=== PATIENT | male | born 1945 | race Caucasian/White ===

== ENCOUNTER 2021-12-10 10:15 | Day surgery (SDC) | payer OTHER ==
[~2021-12-10] VITALS: Ht 185.4 cm; Wt 131.8 kg
[~2021-12-10 10:15] MED LIST: Amlodipine Besy10 MG PO; B-12500 MC2 PO; CHLO25B PO; LEVSOD75 PO; METF500 PO; VITAMIN D31000 UNI1 PO
[2021-12-10] MEDS ORDERED: Carvedilol12.5 MG PO (11:02)
[2021-12-10] MEDS ORDERED: BASAGLAR K100 UNIT/3 SC (11:03)
--- NOTE | 2021-12-10 15:19 | NUR ---
PATIENT RECEIVED BACK TO THE RECOVERY ROOM FROM THE LAB S/P PERIPHERAL PROCEDURE. SBAR RECEIVED FROM TERRI BARGER. PATIENT PLACED ON THE MONITOR AND CALL LIGHT IN REACH. LEFT GROIN AND ANGIOSEAL AND RIGHT FOOT PEDAL ACCESS. DOPPLER PULSE NOTED TO THE RIGHT FOOT. LEFT PT FELT. LEFT GROIN SOFT. DRESSING CDI. RIGHT FOOT ANNA/TEGADERM DRESSING MARKED WITH SMALL TAMERA SIZE BLOOD NOTED. NO PAIN NOTED FROM THE PATIENT. VVS. PATIENT DRINKING WATER. HOB UP TO 15 DEGREES.
[2021-12-10] MEDS ORDERED: CLOP75 PO (15:28)
--- NOTE | 2021-12-10 16:28 | NUR ---
PATIENT SAT UP IN THE BED TO FACILTATE EATING HIS MEAL. GROIN AND RIGHT FOOT DRESSING STABLE.
--- NOTE | 2021-12-10 17:30 | NUR ---
PT UP TO BATHROOM. GROIN SITE STABLE.
--- NOTE | 2021-12-10 17:45 | NUR ---
PT DRESSED PER SELF, GROIN SITE AND DP SITE BOTH STABLE. SALINE LOCK REMOVED WITH CATHETER INTACT. DISCHARGE INSTRUCTIONS REVIEWED WITH PT, VERBALIZES UNDERSTANDING OF INSTRUCTIONS. PT TO PRIVATE VEHICLE PER W/C WITH ONE STAFF.
== END 2021-12-10 23:02 | disposition home or self-care (01) ==
LOC: MHTC 10:15
DX: E11.51 Type 2 diabetes mellitus with diabetic peripheral angiopathy without gangrene (principal); I70.213 Atherosclerosis of native arteries of extremities with intermittent claudication, bilateral legs; R60.0 Localized edema; I13.10 Hypertensive heart and chronic kidney disease without heart failure, with stage 1 through stage 4 chronic kidney disease, or unspecified chronic kidney disease; E11.22 Type 2 diabetes mellitus with diabetic chronic kidney disease; N18.2 Chronic kidney disease, stage 2 (mild); E03.9 Hypothyroidism, unspecified; F17.210 Nicotine dependence, cigarettes, uncomplicated; Z79.4 Long term (current) use of insulin
CPT/HCPCS: 76937; 85347; 99152; 99153; A9270; C1714; C1725; C1760; C1769; C1874; C1876; C1887; C1894; C2623; J0360; J1644; J2250; J3010; J7030; J7050; Q9967

== ENCOUNTER 2022-05-12 09:10 | Day surgery (SDC) | payer OTHER ==
[~2022-05-12] VITALS: Ht 185.4 cm; Wt 130.2 kg
[~2022-05-12 09:10] MED LIST changes: +BASAGLAR K100 UNIT/3 SC; +CLOP75 PO; +Carvedilol12.5 MG PO
--- NOTE | 2022-05-12 09:56 | NUR ---
05/12/22 0956 Amirah Yanez CALL LIGHT WITHIN REACH. TETRACAINE AT 0950 IN RIGHT EYE. PLEDGETT AT 0953 IN RIGHT EYE
== END 2022-05-12 11:29 | disposition home or self-care (01) ==
LOC: ORSCSDS 09:10
PROVIDERS: Ophthalmology
PROC: 08RJ3JZ Replacement of Right Lens with Synthetic Substitute, Percutaneous Approach (ICD-10-PCS; principal; 2022-05-12 10:30)
DX: H25.11 Age-related nuclear cataract, right eye (principal); E11.22 Type 2 diabetes mellitus with diabetic chronic kidney disease; I12.9 Hypertensive chronic kidney disease with stage 1 through stage 4 chronic kidney disease, or unspecified chronic kidney disease; F17.210 Nicotine dependence, cigarettes, uncomplicated; N18.2 Chronic kidney disease, stage 2 (mild); Z79.4 Long term (current) use of insulin; J44.9 Chronic obstructive pulmonary disease, unspecified; Z79.899 Other long term (current) drug therapy; E66.9 Obesity, unspecified; Z68.37 Body mass index [BMI] 37.0-37.9, adult
CPT/HCPCS: 82947; J2001; J2250; J3010; J3301; J7040; V2632

== ENCOUNTER 2022-05-28 09:14 | Day surgery (SDC) | payer OTHER ==
[~2022-05-28] VITALS: Ht 185.4 cm; Wt 130.0 kg
--- NOTE | 2022-05-28 09:44 | NUR ---
05/28/22 0944 Amirah aYnez CALL LIGHT WITHIN REACH. TETRACAIN IN LEFT EYE AT 0941 PLEDGETT AT 0942
== END 2022-05-28 11:20 | disposition home or self-care (01) ==
LOC: ORSCSDS 09:14
PROVIDERS: Ophthalmology
PROC: 08RK3JZ Replacement of Left Lens with Synthetic Substitute, Percutaneous Approach (ICD-10-PCS; principal; 2022-05-28 10:30)
DX: H25.12 Age-related nuclear cataract, left eye (principal); Z96.1 Presence of intraocular lens; I12.9 Hypertensive chronic kidney disease with stage 1 through stage 4 chronic kidney disease, or unspecified chronic kidney disease; E11.22 Type 2 diabetes mellitus with diabetic chronic kidney disease; N18.9 Chronic kidney disease, unspecified; I73.9 Peripheral vascular disease, unspecified; F03.90 Unspecified dementia, unspecified severity, without behavioral disturbance, psychotic disturbance, mood disturbance, and anxiety; F17.210 Nicotine dependence, cigarettes, uncomplicated; E66.9 Obesity, unspecified; Z68.37 Body mass index [BMI] 37.0-37.9, adult; Z79.01 Long term (current) use of anticoagulants; Z79.899 Other long term (current) drug therapy
CPT/HCPCS: 82947; J2001; J2250; J3010; J3301; J7040; V2632

== ENCOUNTER 2024-10-31 15:05 | Inpatient (IN) | payer OTHER ==
[~2024-10-31] VITALS: Ht 185.4 cm; Wt 136.7 kg
[~2024-10-31 15:05] MED LIST changes: +AMIODARONE HCL400 M2 PO; +ATOR20 PO; +Amiodarone HCl200 MG PO; +COMPRESSOR NEB1 EACH MC; +FISH OIL PO; +IPRAT-ALBUT 0.5-3 ML INH; +METO50ER PO; +XARELTO20 MG PO
[2024-10-31 15:44] LABS: BASOPHILS ABSOLUTE AUTO 0.04 K/mm3 (0.00-0.23); BASOPHILS PERCENT AUTO 1 % (0-2); EOSINOPHILS ABSOLUTE AUTO 0.12 K/mm3 (0.00-0.68); EOSINOPHILS PERCENT AUTO 2 % (0-6); Hemoglobin 12.9 g/dL (13.5-17.5); IMMATURE GRAN ABSOLUTE AUTO 0.03 K/mm3 (0.00-0.10); IMMATURE GRAN PERCENT AUTO 1 % (0-1); LYMPHOCYTES ABSOLUTE AUTO 1.84 K/mm3 (0.84-5.20); LYMPHOCYTES PERCENT AUTO 31 % (21-46); MONOCYTES ABSOLUTE AUTO 0.62 K/mm3 (0.16-1.47); MONOCYTES PERCENT AUTO 10 % (4-13); Mean Corpuscular HGB 29.4 pg (26.0-34.0); Mean Corpuscular HGB Conc 30.7 g/dL (31.5-36.5); Mean Corpuscular Volume 96 fL (80-100); Mean Platelet Volume 9.9 fL (9.1-12.4); NEUTROPHILS ABSOLUTE AUTO 3.35 K/mm3 (1.96-9.15); NEUTROPHILS PERCENT AUTO 56 % (41-73); Platelet Count 184 K/mm3 (150-400); RDW Coefficient Variation 14.9 % (11.7-14.2); Red Blood Cell Count 4.39 M/mm3 (4.30-5.90)
[2024-10-31 15:59] LABS: Albumin, Blood 2.9 g/dL (3.4-5.0); Albumin/Globulin Ratio 0.7 (0.8-1.8); Bilirubin, Total 0.4 mg/dL (0.1-1.0); Bun/Creatinine Ratio 11.1 (12.0-20.0); Creatinine, Blood 2.16 mg/dL (0.60-1.20); Potassium, Blood 4.6 mmol/L (3.5-5.5); Total Protein, Blood 6.9 g/dL (6.4-8.2)
[2024-10-31] MEDS ORDERED: Furosemide 10 MG/ML 10ML Vial IV ONE (16:00)
[2024-10-31] MEDS ORDERED: Ondansetron HCl 2 MG / ML 2ML Vial IV PRN (20:20)
[2024-10-31] MEDS ORDERED: Ipratropium/Albuterol SulF 2.5-0.5MG/3 ML Amp INH SCH (20:20)
[2024-10-31 20:23] LABS: Bun/Creatinine Ratio 11.3 (12.0-20.0); Creatinine, Blood 2.12 mg/dL (0.60-1.20); Potassium, Blood 4.3 mmol/L (3.5-5.5)
[2024-10-31] MEDS ORDERED: Albuterol 2.5 MG/3 ML VIAL INH PRN (20:25)
[2024-10-31 20:46] LABS: Base Excess Venous 13.9 mmol/L; Bicarbonate Venous 34.7 mmol/L (24.0-30.0); pH Blood Venous 7.38 (7.34-7.37)
[2024-10-31] MEDS ORDERED: Insulin Glargine-Yfgn 100 Unit/mL 3 ML SYR SC SCH (21:00)
[2024-10-31] MEDS ORDERED: Insulin Human Lispro 100 Units/ML 3ML Syringe SC SCH (21:00)
[2024-10-31] MEDS ORDERED: Metoprolol Succinate 50 MG TABCR PO SCH (21:00)
[2024-10-31 21:33] VITALS: BP 150/119
[2024-10-31 21:59] VITALS: BP 166/111
[2024-10-31 22:53] LABS: Influenza A, PCR NEGATIVE (NEGATIVE); Influenza B, PCR NEGATIVE (NEGATIVE); Resp Syncytial Virus, PCR NEGATIVE (NEGATIVE); SARS-Cov-2 (COVID-19) PCR, MMC NEGATIVE (NEGATIVE)
[2024-10-31 23:00] VITALS: BP 151/112
[2024-10-31 23:30] VITALS: BP 119/84
[2024-11-01] VITALS (8 sets, daily range): BP systolic 111–155; BP diastolic 74–104
[2024-11-01 04:47] LABS: BASOPHILS ABSOLUTE AUTO 0.04 K/mm3 (0.00-0.23); BASOPHILS PERCENT AUTO 1 % (0-2); EOSINOPHILS ABSOLUTE AUTO 0.16 K/mm3 (0.00-0.68); EOSINOPHILS PERCENT AUTO 3 % (0-6); Hematocrit 42.5 % (37.0-53.0); IMMATURE GRAN ABSOLUTE AUTO 0.03 K/mm3 (0.00-0.10); IMMATURE GRAN PERCENT AUTO 1 % (0-1); LYMPHOCYTES ABSOLUTE AUTO 1.84 K/mm3 (0.84-5.20); LYMPHOCYTES PERCENT AUTO 29 % (21-46); MONOCYTES ABSOLUTE AUTO 0.69 K/mm3 (0.16-1.47); MONOCYTES PERCENT AUTO 11 % (4-13); Mean Corpuscular HGB 29.6 pg (26.0-34.0); Mean Corpuscular HGB Conc 30.6 g/dL (31.5-36.5); Mean Corpuscular Volume 97 fL (80-100); Mean Platelet Volume 9.8 fL (9.1-12.4); NEUTROPHILS ABSOLUTE AUTO 3.61 K/mm3 (1.96-9.15); NEUTROPHILS PERCENT AUTO 57 % (41-73); Platelet Count 194 K/mm3 (150-400); RDW Coefficient Variation 14.9 % (11.7-14.2); RDW Standard Deviation 53.3 fL (35.1-46.3); Red Blood Cell Count 4.39 M/mm3 (4.30-5.90); White Blood Cell Count 6.37 K/mm3 (4.00-11.30)
[2024-11-01 05:01] LABS: Albumin, Blood 2.9 g/dL (3.4-5.0); Albumin/Globulin Ratio 0.7 (0.8-1.8); Bilirubin, Total 0.4 mg/dL (0.1-1.0); Bun/Creatinine Ratio 11.6 (12.0-20.0); Calcium, Blood 8.9 mg/dL (8.5-10.1); Creatinine, Blood 2.25 mg/dL (0.60-1.20); Globulin, Blood 3.9 g/dL (2.2-4.0); Magnesium, Blood 2.1 mg/dL (1.6-2.4); Potassium, Blood 3.9 mmol/L (3.5-5.5); Total Protein, Blood 6.8 g/dL (6.4-8.2)
[2024-11-01] MEDS ORDERED: Levothyroxine Sodium 0.075 MG Tab PO SCH (06:00)
--- NOTE | 2024-11-01 06:19 | NUR ---
SHIFT SUMMARY NO ACUTE CHANGES DURING NOC. PT SLEPT INTERMITTENTLY. ROUSES EASILY TO VERBAL STIMULI. PT IS ABLE TO SHIFT SELF IN BED AND STAND AT BEDSIDE. HYPERTENSIVE AT TIMES. MONITOR SHOWS SR-ST, RATE 90s-100s WITH BBB AND OCCASIONAL PERIODS OF AFLUTTER. SATS STABLE WITH O2 3L NC. CPAP ON WHILE SLEEPING- 4L BLEED-IN THIS AM. RESPIRATIONS EVEN AND UNLABORED AT REST. DYSPNEA NOTED WITH EXERTION. TOLERATING DIET. PUREWICK IN PLACE- GOOD URINE OUTPUT AFTER DIURETICS. DENIES C/O PAIN OR NAUSEA. PLAN OF CARE ONGOING. WILL REPORT TO ONCOMING RN WHEN AVAILABLE.
[2024-11-01] MEDS ORDERED: Amiodarone HCl 200 MG Tab PO SCH (09:00)
--- NOTE | 2024-11-01 10:52 | NUR ---
INCREASED CPAP O2 DEMAND: PATIENT WAS SWITCHED OVER TO CPAP WHILE SLEEPIN 4L BLEED IN, HAD OT INCREASE TO 7-8L BLEED IN RT NOTIFIED, RT CHECKED AND ENDORSED TO MONITOR SPO2 LEVEL SATURATING 92-93 WHILE SLEEPING AT THIS BASELINE, PLAN OF CARE CONTINUES, PRIMARY RN AT BEDSIDE WELL.
[2024-11-01] MEDS ORDERED: Potassium Chloride 20 MEQ TabCR PO ONE (11:00)
[2024-11-01 14:09] LABS: Base Excess Venous 13.1 mmol/L; Bicarbonate Venous 34.4 mmol/L (24.0-30.0); PCO2 Venous 62.8 mmHg (38-42); pH Blood Venous 7.39 (7.34-7.37)
--- NOTE | 2024-11-01 16:08 | NUR ---
SUMMARY AOX4, ON 3L NC MOST OF THE DAY, SWITCHED TO BIPAP TO MAINTAIN O2, PATIENT WAS A BIT DROWSY. HAD PATIENT UP IN THE ROOM TO EAT LUNCH. SON VISITED, PATIENT PLACED BACK ON NC AND MAINTAINED <90%. LASIX GIVEN TODAY, PW IS IN PLACE WITH YELLOW URINE OUTPUT. DENIES SOB, CHEST PAIN. VSS, CALLS APPROPRIATELY.
[2024-11-01 16:32] LABS: Adenovirus Not Detected (NOT DETECT); Bordetella pertussis Not Detected (NOT DETECT); Chlamydophila pneumoniae Not Detected (NOT DETECT); Coronavirus 229E Not Detected (NOT DETECT); Coronavirus HKU1 Not Detected (NOT DETECT); Coronavirus NL63 Not Detected (NOT DETECT); Coronavirus OC43 Not Detected (NOT DETECT); Human Metapneumovirus Not Detected (NOT DETECT); Human Rhinovirus/Enterovirus Not Detected (NOT DETECT); Influenza A/2009-H1 Not Detected (NOT DETECT); Influenza A/H1 Not Detected (NOT DETECT); Influenza A/H3 Not Detected (NOT DETECT); Influenza B Not Detected (NOT DETECT); Mycoplasma pneumoniae Not Detected (NOT DETECT); Parainfluenza Virus 1 Not Detected (NOT DETECT); Parainfluenza Virus 2 Not Detected (NOT DETECT); Parainfluenza Virus 3 Not Detected (NOT DETECT); Parainfluenza Virus 4 Not Detected (NOT DETECT); Respiratory Syncytial Virus Not Detected (NOT DETECT); SARS-Cov-2 (COVID-19), BioFire Not Detected (NOT DETECT)
[2024-11-01] MEDS ORDERED: Furosemide 10 MG / ML 2ML Vial IV ONE (17:00)
[2024-11-01] MEDS ORDERED: Furosemide 10 MG / ML 2ML Vial IV SCH (17:00)
[2024-11-01] MEDS ORDERED: Rivaroxaban 2.5 MG TABLET PO SCH (18:00)
[2024-11-01] MEDS ORDERED: Furosemide 10 MG/ML 4ML Vial IV SCH (18:00)
[2024-11-01] MEDS ORDERED: Rivaroxaban 10 MG Tab PO SCH (18:00)
--- NOTE | 2024-11-01 21:38 | NUR ---
PATIENT DESATED TO 75% WHILE SLEEPING ON BIPAP. ATTEMPTED TO WAKE PATIENT AND TURNED OXYGEN BLEED UP AND PATIENT SPO2 CAME UP TO 80%. CALLED RT TO BEDSIDE WHO ADJUSTED BIPAP SETTINGS. SPO2 NOW >90%. PATIENT WAS NOT IN ANY VISUAL DISTRESS. WILL CONTINUE TO MONITOR.
[2024-11-02 03:38] VITALS: BP 127/88
[2024-11-02 05:31] LABS: BASOPHILS ABSOLUTE AUTO 0.05 K/mm3 (0.00-0.23); BASOPHILS PERCENT AUTO 1 % (0-2); EOSINOPHILS ABSOLUTE AUTO 0.12 K/mm3 (0.00-0.68); EOSINOPHILS PERCENT AUTO 2 % (0-6); Hematocrit 40.1 % (37.0-53.0); Hemoglobin 12.3 g/dL (13.5-17.5); IMMATURE GRAN ABSOLUTE AUTO 0.01 K/mm3 (0.00-0.10); IMMATURE GRAN PERCENT AUTO 0 % (0-1); LYMPHOCYTES ABSOLUTE AUTO 2.03 K/mm3 (0.84-5.20); LYMPHOCYTES PERCENT AUTO 35 % (21-46); MONOCYTES ABSOLUTE AUTO 0.59 K/mm3 (0.16-1.47); MONOCYTES PERCENT AUTO 10 % (4-13); Mean Corpuscular HGB 29.4 pg (26.0-34.0); Mean Corpuscular HGB Conc 30.7 g/dL (31.5-36.5); Mean Corpuscular Volume 96 fL (80-100); Mean Platelet Volume 10.1 fL (9.1-12.4); NEUTROPHILS ABSOLUTE AUTO 2.97 K/mm3 (1.96-9.15); NEUTROPHILS PERCENT AUTO 51 % (41-73); Platelet Count 170 K/mm3 (150-400); RDW Standard Deviation 53.1 fL (35.1-46.3); Red Blood Cell Count 4.19 M/mm3 (4.30-5.90); White Blood Cell Count 5.77 K/mm3 (4.00-11.30)
[2024-11-02 06:12] LABS: Albumin, Blood 2.6 g/dL (3.4-5.0); Albumin/Globulin Ratio 0.7 (0.8-1.8); Bilirubin, Total 0.5 mg/dL (0.1-1.0); Bun/Creatinine Ratio 11.5 (12.0-20.0); Calcium, Blood 8.6 mg/dL (8.5-10.1); Creatinine, Blood 2.34 mg/dL (0.60-1.20); Globulin, Blood 3.8 g/dL (2.2-4.0); Magnesium, Blood 2.2 mg/dL (1.6-2.4); Potassium, Blood 4.2 mmol/L (3.5-5.5); Total Protein, Blood 6.4 g/dL (6.4-8.2)
--- NOTE | 2024-11-02 06:17 | NUR ---
SHIFT SUMMARY PATIENT ALERT AND ORIENTED X4. HAD NO COMPMLAINTS OF PAIN OR SHORTNESS OF BREATH. ON 3-4 LITERS O2 VIA NC WHILE AWAKE AND WORE BIPAP FOR SLEEP. NO FURTHER EPISODES OF DESATURATION NOTED. VITAL SIGNS STABLE. WILL CONTINUE TO MONITOR. CALL LIGHT WITHIN REACH.
--- NOTE | 2024-11-02 08:41 | NUR ---
START OF SHIFT THIS NURSE ASSUMED CARE AT APPROXIMATELY 0700. PT RESTING COMFORTABLY IN BED, PT DENIES ANY PAIN AT THIS TIME. WILL CONTINUE WITH THE PLAN OF CARE.
[2024-11-02 09:00] VITALS: BP 137/87
[2024-11-02] MEDS ORDERED: Cyanocobalamin 500 MCG Tab PO SCH (09:00)
[2024-11-02] MEDS ORDERED: Furosemide 10 MG/ML 10ML Vial IV SCH (09:00)
[2024-11-02] MEDS ORDERED: Cholecalciferol 1000 Unit Tablet (=25MCG) PO SCH (09:00)
[2024-11-02] MEDS ORDERED: Furosemide 10 MG/ML 4ML Vial IV SCH (09:00)
[2024-11-02] MEDS ORDERED: Empagliflozin 10 MG TAB PO SCH (09:00)
[2024-11-02] MEDS ORDERED: Atorvastatin 10 MG Tab PO SCH (09:00)
[2024-11-02] MEDS ORDERED: Furosemide 10 MG / ML 2ML Vial IV SCH (10:00)
[2024-11-02 11:54] LABS: Magnesium, Blood 1.9 mg/dL (1.6-2.4); Potassium, Blood 3.7 mmol/L (3.5-5.5)
[2024-11-02 15:00] VITALS: BP 140/104
--- NOTE | 2024-11-02 18:11 | NUR ---
SHIFT SUMMARY PT HAS NO NEW EVENTS TODAY. PT ON 2L NC SAT AOVE 98%. PT HAS NO COMPLAINTS OR NEW CONCERNS AT THIS TIME.
[2024-11-02] MEDS ORDERED: Magnesium Sulf 2 GM/Water 50ML 50 ML IV ONE (19:20)
[2024-11-02] MEDS ORDERED: Potassium Chloride 20 MEQ TabCR PO ONE (20:00)
[2024-11-02 20:04] VITALS: BP 132/84
[2024-11-02 23:35] VITALS: BP 131/92
[2024-11-03 03:35] VITALS: BP 147/98
[2024-11-03 04:21] LABS: BASOPHILS ABSOLUTE AUTO 0.03 K/mm3 (0.00-0.23); BASOPHILS PERCENT AUTO 0 % (0-2); EOSINOPHILS ABSOLUTE AUTO 0.13 K/mm3 (0.00-0.68); EOSINOPHILS PERCENT AUTO 2 % (0-6); Hematocrit 40.2 % (37.0-53.0); Hemoglobin 12.5 g/dL (13.5-17.5); IMMATURE GRAN ABSOLUTE AUTO 0.01 K/mm3 (0.00-0.10); IMMATURE GRAN PERCENT AUTO 0 % (0-1); LYMPHOCYTES ABSOLUTE AUTO 2.45 K/mm3 (0.84-5.20); LYMPHOCYTES PERCENT AUTO 37 % (21-46); MONOCYTES ABSOLUTE AUTO 0.71 K/mm3 (0.16-1.47); MONOCYTES PERCENT AUTO 11 % (4-13); Mean Corpuscular HGB 29.3 pg (26.0-34.0); Mean Corpuscular HGB Conc 31.1 g/dL (31.5-36.5); Mean Corpuscular Volume 94 fL (80-100); NEUTROPHILS ABSOLUTE AUTO 3.38 K/mm3 (1.96-9.15); NEUTROPHILS PERCENT AUTO 51 % (41-73); Platelet Count 162 K/mm3 (150-400); RDW Coefficient Variation 14.8 % (11.7-14.2); RDW Standard Deviation 51.5 fL (35.1-46.3); Red Blood Cell Count 4.26 M/mm3 (4.30-5.90); White Blood Cell Count 6.71 K/mm3 (4.00-11.30)
[2024-11-03 04:47] LABS: Magnesium, Blood 2.4 mg/dL (1.6-2.4)
[2024-11-03 04:48] LABS: Albumin, Blood 2.7 g/dL (3.4-5.0); Albumin/Globulin Ratio 0.7 (0.8-1.8); Bilirubin, Total 0.5 mg/dL (0.1-1.0); Bun/Creatinine Ratio 12.6 (12.0-20.0); Calcium, Blood 8.6 mg/dL (8.5-10.1); Creatinine, Blood 2.46 mg/dL (0.60-1.20); Globulin, Blood 3.7 g/dL (2.2-4.0); Phosphorus, Blood 3.3 mg/dL (2.5-4.9); Potassium, Blood 3.5 mmol/L (3.5-5.5); Total Protein, Blood 6.4 g/dL (6.4-8.2)
--- NOTE | 2024-11-03 06:30 | NUR ---
SHIFT SUMMARY PATIENT ALERT AND ORIENTED X4. HAD NO COMPLAINTS OF PAIN OR SHORTNESS OF BREATH. CONTINUES ON 4 LITERS O2 WHILE AWAKE. WORE BIPAP FOR SLEEP. VITAL SIGNS STABLE. NO ACUTE ISSUES NOTED OVERNIGHT. WILL CONTINUE TO MONITOR. CALL LIGHT WITHIN REACH.
[2024-11-03 07:45] VITALS: BP 132/94
--- NOTE | 2024-11-03 08:36 | NUR ---
Pt is alert, oriented and pleasantly conversant. He ate all of his breakfast. Assisted out of bed to the recliner at his request. Encouraging OOB at least 2-3 times per day. Pt is still wearing purewick due to his difficulty in using the urinal and also still gettting high doses of IV lasix.
--- NOTE | 2024-11-03 08:38 | NUR ---
Oxygen presently is 2 l/min. spo2 89-90% while transferring from bed to recliner.
[2024-11-03] MEDS ORDERED: Polyethylene Glycol 3350 17 gm PO PRN (11:00)
[2024-11-03] MEDS ORDERED: Polyethylene Glycol 3350 17 gm PO ONE (11:00)
[2024-11-03 11:17] VITALS: BP 131/86
[2024-11-03] MEDS ORDERED: Furosemide 10 MG / ML 2ML Vial IV SCH (13:00)
[2024-11-03] MEDS ORDERED: Potassium Chloride 20 MEQ TabCR PO ONE ×2 (13:00→17:00)
--- NOTE | 2024-11-03 13:12 | NUR ---
Pt reports that the small red spots on his arms started after the doctor at the [facility] prescribed small red octagonal pill for his heart, just recently (within the last month). States that the red spots were also on his legs when he came in this admission. Pt states that the medication is xarelto. Pt has no allergies listed.
--- NOTE | 2024-11-03 14:06 | NUR ---
Call to [facility] to confirm pt's outpatient appointment, which he was uncertain about. Confirmed 11/14/24 3:45. Son and pt were updated.
[2024-11-03 15:36] LABS: Bun/Creatinine Ratio 13.2 (12.0-20.0); Calcium, Blood 8.8 mg/dL (8.5-10.1); Creatinine, Blood 2.58 mg/dL (0.60-1.20); Potassium, Blood 3.8 mmol/L (3.5-5.5)
[2024-11-03 16:07] VITALS: BP 141/94
--- NOTE | 2024-11-03 18:51 | NUR ---
Pt diuresing well today. Had BM in bathroom, up to chair and sitting on side of bed a few times today. [place] evacuating large amounts of clear yellow urine. He reports that he is feeling pretty good. Oxygen needs are 2 l/min by n.c. which is his current home dose.
[2024-11-03 20:21] VITALS: BP 163/107
[2024-11-03] MEDS ORDERED: Insulin Glargine-Yfgn 100 Unit/mL 3 ML SYR SC SCH (21:00)
[2024-11-04 03:16] VITALS: BP 143/99
[2024-11-04 04:14] LABS: BASOPHILS ABSOLUTE AUTO 0.06 K/mm3 (0.00-0.23); BASOPHILS PERCENT AUTO 1 % (0-2); EOSINOPHILS ABSOLUTE AUTO 0.11 K/mm3 (0.00-0.68); EOSINOPHILS PERCENT AUTO 2 % (0-6); Hematocrit 38.7 % (37.0-53.0); Hemoglobin 12.2 g/dL (13.5-17.5); IMMATURE GRAN ABSOLUTE AUTO 0.03 K/mm3 (0.00-0.10); IMMATURE GRAN PERCENT AUTO 0 % (0-1); LYMPHOCYTES ABSOLUTE AUTO 2.46 K/mm3 (0.84-5.20); LYMPHOCYTES PERCENT AUTO 36 % (21-46); MONOCYTES ABSOLUTE AUTO 0.71 K/mm3 (0.16-1.47); MONOCYTES PERCENT AUTO 10 % (4-13); Mean Corpuscular HGB 29.5 pg (26.0-34.0); Mean Corpuscular HGB Conc 31.5 g/dL (31.5-36.5); Mean Corpuscular Volume 94 fL (80-100); Mean Platelet Volume 9.9 fL (9.1-12.4); NEUTROPHILS ABSOLUTE AUTO 3.53 K/mm3 (1.96-9.15); NEUTROPHILS PERCENT AUTO 51 % (41-73); Platelet Count 171 K/mm3 (150-400); RDW Coefficient Variation 14.6 % (11.7-14.2); RDW Standard Deviation 50.3 fL (35.1-46.3); Red Blood Cell Count 4.14 M/mm3 (4.30-5.90)
[2024-11-04 04:43] LABS: Albumin, Blood 2.8 g/dL (3.4-5.0); Albumin/Globulin Ratio 0.7 (0.8-1.8); Bilirubin, Total 0.6 mg/dL (0.1-1.0); Bun/Creatinine Ratio 13.5 (12.0-20.0); Calcium, Blood 8.7 mg/dL (8.5-10.1); Creatinine, Blood 2.52 mg/dL (0.60-1.20); Globulin, Blood 3.8 g/dL (2.2-4.0); Magnesium, Blood 2.4 mg/dL (1.6-2.4); Potassium, Blood 3.7 mmol/L (3.5-5.5); Total Protein, Blood 6.6 g/dL (6.4-8.2)
--- NOTE | 2024-11-04 06:18 | NUR ---
SHIFT SUMMARY ASSUMED CARE OF PT AT APPROX 1900. PT A&O4, COOPERATIVE IN CARE AND ABLE TO EXPRESS NEEDS. PT DENIES SOB AND CP/PRESSURE. TITRATED PT BETWEEN 2-4L NC OVERNIGHT THEN PT AGREED TO BE PLACED ON CPAP WHILE SLEEPING. MALE PUREWICK IN PLACE OVERNIGHT WHILE SLEEPING D/T DIURESING. PT ABLE TO REPOSITIONSELF. NO ACUTE CARDIAC EVENTS OVERNIGHT REPORTED. BED IN LOWEST POSITION AND CALL LIGHT WITHIN REACH.
[2024-11-04 08:00] VITALS: BP 135/90
[2024-11-04] MEDS ORDERED: Potassium Chloride 20 MEQ TabCR PO ONE (09:00)
[2024-11-04 11:38] VITALS: BP 124/88
[2024-11-04 15:07] VITALS: BP 125/92
[2024-11-04 15:18] LABS: Bun/Creatinine Ratio 14.3 (12.0-20.0); Calcium, Blood 8.8 mg/dL (8.5-10.1); Creatinine, Blood 2.45 mg/dL (0.60-1.20); Potassium, Blood 4.2 mmol/L (3.5-5.5)
--- NOTE | 2024-11-04 17:50 | NUR ---
SHIFT SUMMARY PT A&Ox4, CALLS AND COMMUNICATES NEEDS APPOPRIATELY. BP STABLE, AFLUTTER 110's, DENIES CP/PRESSURE. SpO2> 92% 2L VIA NC, DESAT TO MID 80's WHEN ON RA, DENIES SOB. SBA FOR AMBULATION. MALE PUREWICK IN PLACE FOR ACCURATE I&Os WITH DIURETICS. NO C/O PAIN. NO OTHER EVENTS, WILL REPORT TO ONCOMING RN.
[2024-11-04 20:42] VITALS: BP 147/95
[2024-11-05 02:55] VITALS: BP 124/97
[2024-11-05 04:32] LABS: BASOPHILS ABSOLUTE AUTO 0.03 K/mm3 (0.00-0.23); BASOPHILS PERCENT AUTO 0 % (0-2); EOSINOPHILS ABSOLUTE AUTO 0.09 K/mm3 (0.00-0.68); EOSINOPHILS PERCENT AUTO 1 % (0-6); Hematocrit 40.6 % (37.0-53.0); Hemoglobin 12.9 g/dL (13.5-17.5); IMMATURE GRAN ABSOLUTE AUTO 0.02 K/mm3 (0.00-0.10); IMMATURE GRAN PERCENT AUTO 0 % (0-1); LYMPHOCYTES ABSOLUTE AUTO 2.13 K/mm3 (0.84-5.20); LYMPHOCYTES PERCENT AUTO 32 % (21-46); MONOCYTES ABSOLUTE AUTO 0.75 K/mm3 (0.16-1.47); MONOCYTES PERCENT AUTO 11 % (4-13); Mean Corpuscular HGB 29.9 pg (26.0-34.0); Mean Corpuscular HGB Conc 31.8 g/dL (31.5-36.5); Mean Corpuscular Volume 94 fL (80-100); NEUTROPHILS ABSOLUTE AUTO 3.68 K/mm3 (1.96-9.15); NEUTROPHILS PERCENT AUTO 55 % (41-73); Platelet Count 180 K/mm3 (150-400); RDW Coefficient Variation 14.6 % (11.7-14.2); RDW Standard Deviation 51.2 fL (35.1-46.3); Red Blood Cell Count 4.32 M/mm3 (4.30-5.90)
[2024-11-05 05:07] LABS: Albumin, Blood 2.8 g/dL (3.4-5.0); Albumin/Globulin Ratio 0.7 (0.8-1.8); Bilirubin, Total 0.6 mg/dL (0.1-1.0); Bun/Creatinine Ratio 13.6 (12.0-20.0); Calcium, Blood 8.9 mg/dL (8.5-10.1); Creatinine, Blood 2.65 mg/dL (0.60-1.20); Globulin, Blood 3.8 g/dL (2.2-4.0); Magnesium, Blood 2.4 mg/dL (1.6-2.4); Potassium, Blood 3.6 mmol/L (3.5-5.5); Total Protein, Blood 6.6 g/dL (6.4-8.2)
--- NOTE | 2024-11-05 05:31 | NUR ---
SHIFT SUMMARY ASSUMED CARE OF PT AT APPROX 1900. PT A&O4, COOPERATIVE IN CARE AND ABLE TO EXPRESS NEEDS. PT DENIES CP/PRESSURE AND SOB. VSS AND PT TOLERATED CPAP MOST OF THE NIGHT. PT DID HAVE EPISODES OF APNEA WHICH WOULD DROP HIS O2 SATURATION TO 79%. WHILE AWAKE PT WAS ON 2LNC AND WOULD AMBULATE TO RR WITH FWW. NO REPORTS OF DYSPNEA ON EXERTION. VSS. NO ACUTE CARDIAC EVENTS REPORTED. BED IN LOWEST POSITION AND CALL LIGHT WITHIN REACH.
[2024-11-05 07:44] VITALS: BP 126/92
[2024-11-05] MEDS ORDERED: Potassium Chloride 20 MEQ TabCR PO ONE (08:00)
[2024-11-05] MEDS ORDERED: Ipratropium/Albuterol SulF 2.5-0.5MG/3 ML Amp INH PRN (08:35)
[2024-11-05] MEDS ORDERED: Spironolactone 12.5 MG TAB PO SCH (09:00)
[2024-11-05] MEDS ORDERED: Furosemide 10 MG / ML 2ML Vial IV SCH (13:00)
[2024-11-05 14:38] LABS: Bun/Creatinine Ratio 13.9 (12.0-20.0); Calcium, Blood 8.6 mg/dL (8.5-10.1); Creatinine, Blood 2.66 mg/dL (0.60-1.20); Potassium, Blood 4.5 mmol/L (3.5-5.5)
[2024-11-05 15:19] VITALS: BP 135/99
--- NOTE | 2024-11-05 17:55 | NUR ---
SHIFT SUMMARY PT A&Ox4, CALLS AND COMMUNICATES NEEDS APPOPRIATELY. BP STABLE, AFLUTTER 100's, DENIES CP/PRESSURE. SpO2> 92% 2L VIA NC, DESAT TO MID 80's WHEN ON RA, DENIES SOB. SBA FOR AMBULATION. MALE PUREWICK IN PLACE FOR ACCURATE I&Os WITH DIURETICS. NO C/O PAIN. NO OTHER EVENTS, WILL REPORT TO ONCOMING RN.
[2024-11-05 20:27] VITALS: BP 124/78
[2024-11-05 21:12] LABS: Bun/Creatinine Ratio 14.4 (12.0-20.0); Creatinine, Blood 2.78 mg/dL (0.60-1.20); Potassium, Blood 3.8 mmol/L (3.5-5.5)
[2024-11-05 23:45] VITALS: BP 136/85
[2024-11-06 04:13] VITALS: BP 126/87
[2024-11-06 04:17] LABS: BASOPHILS ABSOLUTE AUTO 0.06 K/mm3 (0.00-0.23); BASOPHILS PERCENT AUTO 1 % (0-2); EOSINOPHILS ABSOLUTE AUTO 0.15 K/mm3 (0.00-0.68); EOSINOPHILS PERCENT AUTO 2 % (0-6); Hematocrit 42.5 % (37.0-53.0); Hemoglobin 13.6 g/dL (13.5-17.5); IMMATURE GRAN ABSOLUTE AUTO 0.03 K/mm3 (0.00-0.10); IMMATURE GRAN PERCENT AUTO 0 % (0-1); LYMPHOCYTES ABSOLUTE AUTO 2.86 K/mm3 (0.84-5.20); LYMPHOCYTES PERCENT AUTO 38 % (21-46); MONOCYTES ABSOLUTE AUTO 0.79 K/mm3 (0.16-1.47); MONOCYTES PERCENT AUTO 10 % (4-13); Mean Corpuscular HGB 29.8 pg (26.0-34.0); Mean Corpuscular Volume 93 fL (80-100); Mean Platelet Volume 10.3 fL (9.1-12.4); NEUTROPHILS ABSOLUTE AUTO 3.68 K/mm3 (1.96-9.15); NEUTROPHILS PERCENT AUTO 49 % (41-73); Platelet Count 207 K/mm3 (150-400); RDW Coefficient Variation 14.4 % (11.7-14.2); RDW Standard Deviation 48.7 fL (35.1-46.3); Red Blood Cell Count 4.57 M/mm3 (4.30-5.90); White Blood Cell Count 7.57 K/mm3 (4.00-11.30)
[2024-11-06 04:45] LABS: Magnesium, Blood 2.3 mg/dL (1.6-2.4)
[2024-11-06 04:46] LABS: Albumin, Blood 3.1 g/dL (3.4-5.0); Albumin/Globulin Ratio 0.7 (0.8-1.8); Bilirubin, Total 0.6 mg/dL (0.1-1.0); Calcium, Blood 8.7 mg/dL (8.5-10.1); Creatinine, Blood 2.66 mg/dL (0.60-1.20); Globulin, Blood 4.3 g/dL (2.2-4.0); Potassium, Blood 3.4 mmol/L (3.5-5.5); Total Protein, Blood 7.4 g/dL (6.4-8.2)
--- NOTE | 2024-11-06 06:44 | NUR ---
SHIFT SUMMARY: PT IS A&OX4, PLEASANT AND APPRECIATIVE OF CARE. PT IS VERY [place]. VSS ON 2L NC, CPAP ON WHILE ASLEEP. PT BECOMES APNEIC AND DESATS INTO THE 70'S WHILE CPAP IS ON. HR AFIB/AFLUTTER @ 110-120'S. DENIES PAIN. TOLERATING A CONS CARB DIET, GOOD APPETITE. SBA WITH FWW TO BR. WICKING SYSTEM DRAINING LARGE AMOUNTS OF CLEAR, LIGHT YELLOW URINE. X1 LARGE, NON FORMED BM THIS SHIFT. BED IN LOWEST POSITION, CALL LIGHT WITHIN REACH.
[2024-11-06 07:50] VITALS: BP 105/70
[2024-11-06] MEDS ORDERED: Potassium Chloride 20 MEQ TabCR PO ONE ×2 (08:00→17:00)
[2024-11-06 11:49] VITALS: BP 130/80
[2024-11-06 12:55] LABS: Bun/Creatinine Ratio 14.6 (12.0-20.0); Calcium, Blood 8.7 mg/dL (8.5-10.1); Creatinine, Blood 2.68 mg/dL (0.60-1.20); Potassium, Blood 3.8 mmol/L (3.5-5.5)
[2024-11-06 16:25] VITALS: BP 126/74
--- NOTE | 2024-11-06 17:42 | NUR ---
SHIFT SUMMARY: PT HAS BEEN A&Ox4, IS [place] BUT ANSWERS QUESTIONS APPROPRIATELY AND IS COOPERATIVE W/CARE. PT DENIES SOB, O2 SATS MAINTAINED >92% ON 2 L/MIN NC WHILE AWAKE, CPAP ON SB AT BEDSIDE. PT DENIES CP, AFLUTTER ON MONITOR W/RATE 90s-110s. PT HAS BEEN SBA TO/FROM BED, SPENDS PART OF THE DAY IN THE RECLINER, USES FWW IF AMBULATING TO BATHROOM. MALE PUREWICK CONTINUES IN PLACE, DRAINING YELLOW COLORED URINE TO LOW CONTINUOUS SUCTION. DIURETIC SCHEDULE MAINTAINED PER ORDERS. PT CURRENTLY RESTING IN RECLINER W/CALL LIGHT IN REACH.
[2024-11-06 20:30] VITALS: BP 123/71
--- NOTE | 2024-11-06 21:47 | NUR ---
ATTEMPTED TO CALL FOR REPORT AND AWAITING RETURN CALL.
--- NOTE | 2024-11-06 22:44 | NUR ---
ASSUMPTION OF CARE/TRANSFER: PT IS A&OX4, PLEASANT AND APPRECIATIVE OF CARE. PT IS VERY [place]. VSS ON 2L NC. HR AFLUTTER @ 110-120'S. DENIES PAIN. TOLERATING A CONS CARB DIET, GOOD APPETITE. SBA WITH FWW TO BR. WICKING SYSTEM DRAINING LARGE AMOUNTS OF CLEAR, LIGHT YELLOW URINE. BED IN LOWEST POSITION, CALL LIGHT WITHIN REACH. CALLED REPORT TO CIARA Ricks RN. TRANSFERRED PT AND ALL BELONGINGS IN HAND TO ROOM 308 AT 2220.
[2024-11-07 00:59] VITALS: BP 129/90
--- NOTE | 2024-11-07 04:45 | NUR ---
T/F AND SUMMARY: REPORT RECEIVED FROM VICTORIA AND PT T/F TO ROOM 308 AT 2210. PT WAS ORIENTED TO NEW ROOM AND CALL SYSTEM. HE'S A/OX4 AND PLEASANT AND COOPERATIVE W/CARE. PT IS [place] BUT ABLE TO SPECIFY NEEDS. HE REMAIN ON 2L O2 VIA NC W/SPO2 WNL AND TOLERATES CPAP AT HS W/3L O2 BLEED IN. PT ON TELE IN A.FLUTTER AT 100'S BPM. HE'S SBA W/FWW TO BR AND PUREWIC WAS DC'D PER REQUEST W/URINAL PROVIDED AT EOB. BLE EDEMA PERSISTS. NO ACUTE CHANGES, VSS/AFEBRILE. WCTM AND REPORT TO DAY RN.
[2024-11-07 04:49] VITALS: BP 116/77
[2024-11-07 07:38] VITALS: BP 121/74
[2024-11-07 07:59] LABS: BASOPHILS ABSOLUTE AUTO 0.04 K/mm3 (0.00-0.23); BASOPHILS PERCENT AUTO 1 % (0-2); EOSINOPHILS ABSOLUTE AUTO 0.14 K/mm3 (0.00-0.68); EOSINOPHILS PERCENT AUTO 2 % (0-6); Hematocrit 38.1 % (37.0-53.0); IMMATURE GRAN ABSOLUTE AUTO 0.02 K/mm3 (0.00-0.10); IMMATURE GRAN PERCENT AUTO 0 % (0-1); LYMPHOCYTES ABSOLUTE AUTO 2.88 K/mm3 (0.84-5.20); LYMPHOCYTES PERCENT AUTO 42 % (21-46); MONOCYTES ABSOLUTE AUTO 0.68 K/mm3 (0.16-1.47); MONOCYTES PERCENT AUTO 10 % (4-13); Mean Corpuscular HGB 29.3 pg (26.0-34.0); Mean Corpuscular HGB Conc 31.5 g/dL (31.5-36.5); Mean Corpuscular Volume 93 fL (80-100); Mean Platelet Volume 9.8 fL (9.1-12.4); NEUTROPHILS ABSOLUTE AUTO 3.06 K/mm3 (1.96-9.15); NEUTROPHILS PERCENT AUTO 45 % (41-73); Platelet Count 167 K/mm3 (150-400); RDW Coefficient Variation 14.3 % (11.7-14.2); RDW Standard Deviation 48.7 fL (35.1-46.3); White Blood Cell Count 6.82 K/mm3 (4.00-11.30)
[2024-11-07] MEDS ORDERED: Potassium Chloride 20 MEQ TabCR PO ONE ×2 (08:00→11:00)
[2024-11-07 08:26] LABS: Albumin, Blood 2.7 g/dL (3.4-5.0); Albumin/Globulin Ratio 0.8 (0.8-1.8); Bilirubin, Total 0.5 mg/dL (0.1-1.0); Bun/Creatinine Ratio 13.5 (12.0-20.0); Calcium, Blood 8.5 mg/dL (8.5-10.1); Creatinine, Blood 2.81 mg/dL (0.60-1.20); Globulin, Blood 3.6 g/dL (2.2-4.0); Magnesium, Blood 2.3 mg/dL (1.6-2.4); Potassium, Blood 3.6 mmol/L (3.5-5.5); Total Protein, Blood 6.3 g/dL (6.4-8.2)
[2024-11-07 11:09] VITALS: BP 120/77
[2024-11-07 14:50] LABS: Bun/Creatinine Ratio 12.9 (12.0-20.0); Calcium, Blood 8.8 mg/dL (8.5-10.1); Creatinine, Blood 2.63 mg/dL (0.60-1.20)
[2024-11-07 15:31] VITALS: BP 131/85
--- NOTE | 2024-11-07 18:13 | NUR ---
SHIFT SUMMARY A&0X4, COOPERATIVE WITH CARE. NO ACUTE EVENTS THIS SHIFT. DENIED ANY CP/PRESSURE, HEADACHE, DIZZINESS, OR SOB. DIURESING AND VOIDING ADEQUATELY. BLE EDEMA IMPROVED. CURRENTLY ON 2L SATTING >92%. TELEMETRY REPORTS AFLUTTER FROM 90-120'S DEPENDENDING ON ACTIVITY LEVEL. PATIENT ABLE TO AMBULATE FROM BED TO BATHROOM INDEPENDENTLY. CALLS APPROPRIATELY. CURRENTLY EATING DINNER. CALL LIGHT WITHIN REACH.
[2024-11-07 20:38] VITALS: BP 148/88
[2024-11-08 00:20] VITALS: BP 119/78
--- NOTE | 2024-11-08 04:29 | NUR ---
SUMMARY: PT A/OX4, CALLS APPROPRIATELY TO SPECIFY NEEDS AND IS PLEASANT AND COOPERATIVE W/CARE. BLE EDEMA IS IMPROVING W/CONTINUED DIURESIS. HE USES URINAL TO VOID AND IS UP TO BR INDEPENDENTLY OR SBA PRN. SPO2 WNL ON 2L VIA NC AND 3L O2 BLEED IN VIA CPAP, CONT BIOX INTACT. HE'S AFLUTTER AT 90'S-100'S BPM ON TELE. NO ACUTE CHANGES, VSS/AFEBRILE. WCTM AND REPORT TO DAY RN.
[2024-11-08 04:32] VITALS: BP 112/72
[2024-11-08 07:19] VITALS: BP 116/75
[2024-11-08 07:49] LABS: BASOPHILS ABSOLUTE AUTO 0.05 K/mm3 (0.00-0.23); BASOPHILS PERCENT AUTO 1 % (0-2); EOSINOPHILS ABSOLUTE AUTO 0.15 K/mm3 (0.00-0.68); EOSINOPHILS PERCENT AUTO 2 % (0-6); Hematocrit 38.6 % (37.0-53.0); Hemoglobin 12.2 g/dL (13.5-17.5); IMMATURE GRAN ABSOLUTE AUTO 0.02 K/mm3 (0.00-0.10); IMMATURE GRAN PERCENT AUTO 0 % (0-1); LYMPHOCYTES ABSOLUTE AUTO 3.06 K/mm3 (0.84-5.20); LYMPHOCYTES PERCENT AUTO 43 % (21-46); MONOCYTES ABSOLUTE AUTO 0.76 K/mm3 (0.16-1.47); MONOCYTES PERCENT AUTO 11 % (4-13); Mean Corpuscular HGB 29.4 pg (26.0-34.0); Mean Corpuscular HGB Conc 31.6 g/dL (31.5-36.5); Mean Corpuscular Volume 93 fL (80-100); Mean Platelet Volume 10.1 fL (9.1-12.4); NEUTROPHILS ABSOLUTE AUTO 3.05 K/mm3 (1.96-9.15); NEUTROPHILS PERCENT AUTO 43 % (41-73); Platelet Count 180 K/mm3 (150-400); RDW Coefficient Variation 14.1 % (11.7-14.2); RDW Standard Deviation 47.9 fL (35.1-46.3); Red Blood Cell Count 4.15 M/mm3 (4.30-5.90); White Blood Cell Count 7.09 K/mm3 (4.00-11.30)
[2024-11-08] MEDS ORDERED: Potassium Chloride 20 MEQ TabCR PO ONE (08:00)
[2024-11-08 08:17] LABS: Albumin, Blood 2.8 g/dL (3.4-5.0); Albumin/Globulin Ratio 0.7 (0.8-1.8); Bilirubin, Total 0.6 mg/dL (0.1-1.0); Bun/Creatinine Ratio 12.8 (12.0-20.0); Calcium, Blood 8.8 mg/dL (8.5-10.1); Creatinine, Blood 2.81 mg/dL (0.60-1.20); Globulin, Blood 3.8 g/dL (2.2-4.0); Potassium, Blood 3.5 mmol/L (3.5-5.5); Total Protein, Blood 6.6 g/dL (6.4-8.2)
[2024-11-08 11:01] VITALS: BP 126/75
[2024-11-08] MEDS ORDERED: ALBU2.5V5 INH (14:27)
[2024-11-08] MEDS ORDERED: JARDIANCE10 MG PO (14:27)
[2024-11-08] MEDS ORDERED: POTCHL20ER PO (14:28)
[2024-11-08] MEDS ORDERED: MIRALAX17 GM PO (14:28)
[2024-11-08] MEDS ORDERED: TORSE20 PO (14:28)
[2024-11-08] MEDS ORDERED: SPIR25 PO (14:29)
--- NOTE | 2024-11-08 16:48 | NUR ---
DISCHARGE NOTE PATIENT A/OX4, ABLE TO MAKE NEEDS KNOWN. PLEASANT AND COOPERATIVE WITH CARE. IV AND TELEMETRY REMOVED PRIOR TO DISCHARGE. DISCHARGE INSTRUCTIONS AND NEW MEDICATIONS DISCUSSED WITH PATIENT AND PATIENT AGREEABLE TO ATTEND ALL HOSPITAL FOLLOW UP APPOINTMENTS AND TO TAKE MEDICATIONS PRESCRIBED. PATIENT'S BROTHER ARRIVED FOR TRANSPORTATION. PATIENT ASSISTED TO FAMILY VEHCILE VIA WHEELCHAIR BY [facility] STAFF AND TRASNFERRED TO [HIS PORTABLE OXYGEN TANK IN THE VEHCILE. NO OTHER CONCERNS.
== END 2024-11-08 16:35 | disposition home health service (06) | DRG 291 ==
LOC: ER 15:05 → PCU 20:17 → MEDS 11-06 22:10
PROVIDERS: Internal Medicine; Nurse Practitioner Acute Care; Student in an Organized Health Care Education/Training Program; ADMIT Student in an Organized Health Care Education/Training Program
DX: I13.0 Hypertensive heart and chronic kidney disease with heart failure and stage 1 through stage 4 chronic kidney disease, or unspecified chronic kidney disease (principal); J96.21 Acute and chronic respiratory failure with hypoxia; J96.22 Acute and chronic respiratory failure with hypercapnia; I50.32 Chronic diastolic (congestive) heart failure; Z68.42 Body mass index [BMI] 45.0-49.9, adult; I48.92 Unspecified atrial flutter; N17.9 Acute kidney failure, unspecified; E03.9 Hypothyroidism, unspecified; E78.5 Hyperlipidemia, unspecified; E66.01 Morbid (severe) obesity due to excess calories; G47.33 Obstructive sleep apnea (adult) (pediatric); N18.31 Chronic kidney disease, stage 3a; E11.51 Type 2 diabetes mellitus with diabetic peripheral angiopathy without gangrene; J44.9 Chronic obstructive pulmonary disease, unspecified; I45.10 Unspecified right bundle-branch block; K59.00 Constipation, unspecified; Z99.81 Dependence on supplemental oxygen; Z79.890 Hormone replacement therapy; Z79.899 Other long term (current) drug therapy; Z79.85 Long-term (current) use of injectable non-insulin antidiabetic drugs; Z79.51 Long term (current) use of inhaled steroids; Z79.01 Long term (current) use of anticoagulants; Z79.4 Long term (current) use of insulin
CPT/HCPCS: 0202U; 0241U; 36415; 71045; 80048; 80053; 82803; 82947; 83735; 83880; 84100; 84132; 84145; 84484; 85025; 93005; 93010; 94640; 94660; 94760; 94762; 96374; 97162; 97166; 97530; 97535; 99285-25; A9270; J1815; J1940; J3475

== ENCOUNTER → 2024-11-23 | Outpatient (CLI) | payer OTHER ==
[~2024-11-23] MED LIST changes: +ALBU2.5V5 INH; +JARDIANCE10 MG PO; +MIRALAX17 GM PO; +POTCHL20ER PO; +SPIR25 PO; +TORSE20 PO
[2024-11-24 17:40] LABS: Creatinine Urine 36.7 mg/dL (27.00-270.00); Protein, Urine Quantitative 149.2 mg/dL (0.0-11.9)
== END ==
LOC: LAB 20:00 → LAB SHORT 20:00
PROVIDERS: Internal Medicine Nephrology
DX: N18.4 Chronic kidney disease, stage 4 (severe) (principal); R76.9 Abnormal immunological finding in serum, unspecified; N25.81 Secondary hyperparathyroidism of renal origin; E55.9 Vitamin D deficiency, unspecified; E78.00 Pure hypercholesterolemia, unspecified; R94.5 Abnormal results of liver function studies; R94.6 Abnormal results of thyroid function studies; D51.8 Other vitamin B12 deficiency anemias; D52.8 Other folate deficiency anemias; D50.9 Iron deficiency anemia, unspecified
CPT/HCPCS: 81050; 82043; 82570; 84156

== ENCOUNTER → 2025-09-13 | Outpatient (CLI) | payer OTHER ==
[2025-09-13 20:06] LABS: Protein, Urine Quantitative 62.6 mg/dL (0.0-11.9)
[2025-09-13 20:12] LABS: Microalbumin, Urine Quant. 473.0 mg/L (0.000-20.000)
== END ==
LOC: LAB SHORT 10:00 → LAB 10:00
PROVIDERS: Internal Medicine Nephrology
DX: N18.30 Chronic kidney disease, stage 3 unspecified (principal); D63.1 Anemia in chronic kidney disease; N25.81 Secondary hyperparathyroidism of renal origin; E55.9 Vitamin D deficiency, unspecified; E78.00 Pure hypercholesterolemia, unspecified; R76.9 Abnormal immunological finding in serum, unspecified; R94.5 Abnormal results of liver function studies; R94.6 Abnormal results of thyroid function studies
CPT/HCPCS: 81050; 82043; 82570; 84156